=== PATIENT | female | born 1975 | race Caucasian/White ===

== ENCOUNTER 2017-09-18 18:12 | Outpatient (CLI) | payer OTHER ==
[~2017-09-18] VITALS: Ht 152.4 cm; Wt 98.9 kg
[~2017-09-18 18:12] MED LIST: CLOBETASOL 0.0515 GM TP; FIORICET PO; HYZAAR 50-12.1 UDTAB; HYZAAR 50-12.51 EACH PO; HYZAAR 50/12.51 TAB; HYZAAR 50/12.51 TAB PO; LIPO-FLAVONOID1 EACH PO; LISINOPRIL10 MG PO; MECLIZINE HCL12.5 MG; MECLIZINE HCL12.5 MG PO; NAPROXEN500 MG PO; TRENTAL 400 MG PO
== END 2017-09-18 18:30 | disposition home or self-care (01) ==
LOC: PPHC 18:12
DX: Z76.0 Encounter for issue of repeat prescription (principal); I10 Essential (primary) hypertension

== ENCOUNTER 2017-11-04 12:40 | Outpatient (CLI) | payer OTHER | END 2017-11-04 12:45 | disposition home or self-care (01) | LOC: RAD 12:40 | DX: M25.522 Pain in left elbow (principal) ==

== ENCOUNTER → 2017-11-04 | Outpatient (CLI) | payer OTHER | END | disposition home or self-care (01) | LOC: PPHC 11:04 | DX: M25.522 Pain in left elbow (principal) ==

== ENCOUNTER → 2017-11-23 | Outpatient (CLI) | payer OTHER | END | disposition home or self-care (01) | LOC: PPHC 08:55 | DX: Z76.0 Encounter for issue of repeat prescription (principal) ==

== ENCOUNTER 2018-01-25 07:36 | Outpatient (CLI) | payer OTHER | END 2018-01-25 09:48 | disposition home or self-care (01) | LOC: MAMO-SONO 07:36 | DX: Z12.31 Encounter for screening mammogram for malignant neoplasm of breast (principal) ==

== ENCOUNTER → 2018-01-30 09:18 | Outpatient (CLI) | payer OTHER | END | disposition home or self-care (01) | LOC: RAD 09:18 | DX: M54.2 Cervicalgia (principal) ==

== ENCOUNTER → 2018-03-08 06:51 | Outpatient (CLI) | payer OTHER | END | disposition home or self-care (01) | LOC: LAB 06:51 | DX: Z12.11 Encounter for screening for malignant neoplasm of colon (principal); I10 Essential (primary) hypertension ==

== ENCOUNTER 2019-01-26 09:45 | Outpatient (CLI) | payer OTHER ==
[~2019-01-26 09:45] MED LIST changes: +NABUMETONE750 MG PO
== END 2019-01-26 14:31 | disposition home or self-care (01) ==
LOC: MAMO-SONO 09:45
DX: N64.4 Mastodynia (principal); Z12.31 Encounter for screening mammogram for malignant neoplasm of breast

== ENCOUNTER 2019-03-14 08:18 | Outpatient (CLI) | payer OTHER | END 2019-03-14 08:25 | disposition home or self-care (01) | LOC: NUCLEAR 08:18 | DX: I10 Essential (primary) hypertension (principal) ==

== ENCOUNTER 2019-03-26 08:48 | Outpatient (CLI) | payer OTHER | END 2019-03-26 10:12 | disposition home or self-care (01) | LOC: LAB 08:48 | DX: D64.89 Other specified anemias (principal); R10.84 Generalized abdominal pain; E03.8 Other specified hypothyroidism; E78.5 Hyperlipidemia, unspecified; E78.49 Other hyperlipidemia; E80.6 Other disorders of bilirubin metabolism ==

== ENCOUNTER → 2019-04-27 18:16 | Outpatient (CLI) | payer OTHER | END | disposition home or self-care (01) | LOC: LAB 18:16 | DX: J11.1 Influenza due to unidentified influenza virus with other respiratory manifestations (principal) ==

== ENCOUNTER → 2019-07-09 13:23 | Outpatient (CLI) | payer OTHER | END | disposition home or self-care (01) | LOC: RAD 13:23 | DX: M54.2 Cervicalgia (principal); M25.511 Pain in right shoulder ==

== ENCOUNTER 2019-10-26 18:33 | Outpatient (CLI) | payer OTHER | END 2019-10-26 20:50 | disposition home or self-care (01) | LOC: RAD 18:33 | DX: M25.521 Pain in right elbow (principal) ==

== ENCOUNTER 2020-03-02 08:35 | Outpatient (CLI) | payer OTHER | END 2020-03-02 15:58 | disposition home or self-care (01) | LOC: MAMO-SONO 08:35 | PROVIDERS: ATTEND General Practice | DX: Z12.31 Encounter for screening mammogram for malignant neoplasm of breast (principal) ==

== ENCOUNTER 2020-04-21 08:43 | Outpatient (CLI) | payer OTHER | END 2020-04-21 15:00 | disposition home or self-care (01) | LOC: LAB 08:43 | PROVIDERS: ATTEND General Practice | DX: I10 Essential (primary) hypertension (principal); E78.2 Mixed hyperlipidemia; Z12.11 Encounter for screening for malignant neoplasm of colon; Z00.8 Encounter for other general examination ==

== ENCOUNTER 2020-04-27 17:46 | Outpatient (CLI) | payer OTHER | END 2020-04-27 18:00 | disposition home or self-care (01) | LOC: PPH VACUNA 17:46 | DX: Z23 Encounter for immunization (principal) ==

== ENCOUNTER → 2020-07-21 10:37 | Outpatient (CLI) | payer OTHER | END | disposition home or self-care (01) | LOC: LAB 10:37 | PROVIDERS: ATTEND General Practice | DX: Z03.818 Encounter for observation for suspected exposure to other biological agents ruled out (principal); R06.02 Shortness of breath; R05 Cough ==

== ENCOUNTER 2020-07-26 06:09 | Outpatient (CLI) | payer OTHER | END 2020-07-26 06:21 | disposition home or self-care (01) | LOC: LAB 06:09 | DX: D50.8 Other iron deficiency anemias (principal); N39.0 Urinary tract infection, site not specified; E11.65 Type 2 diabetes mellitus with hyperglycemia; Z12.11 Encounter for screening for malignant neoplasm of colon ==

== ENCOUNTER 2020-07-27 12:38 | Outpatient (CLI) | payer OTHER | END 2020-07-27 12:42 | disposition home or self-care (01) | LOC: LAB 12:38 | DX: D50.8 Other iron deficiency anemias (principal); N39.0 Urinary tract infection, site not specified; E11.69 Type 2 diabetes mellitus with other specified complication; Z12.11 Encounter for screening for malignant neoplasm of colon ==

== ENCOUNTER → 2020-08-22 | Outpatient (CLI) | payer OTHER | END | disposition home or self-care (01) | LOC: SONOGRAMA 08-21 10:11 → MAMO-SONO 08-21 10:15 → SONOGRAMA 10:16 | PROVIDERS: ATTEND General Practice | DX: M25.512 Pain in left shoulder (principal) ==

== ENCOUNTER → 2020-12-03 13:44 | Outpatient (CLI) | payer OTHER | END | disposition home or self-care (01) | LOC: LAB 13:44 | PROVIDERS: ATTEND Physical Medicine & Rehabilitation | DX: R05 Cough (principal); R50.9 Fever, unspecified; R06.02 Shortness of breath; Z03.818 Encounter for observation for suspected exposure to other biological agents ruled out ==

== ENCOUNTER 2020-12-11 10:01 | Outpatient (CLI) | payer OTHER | END 2020-12-11 10:06 | disposition home or self-care (01) | LOC: LAB 10:01 | PROVIDERS: ATTEND Internal Medicine | DX: Z20.89 Contact with and (suspected) exposure to other communicable diseases (principal); Z20.822 Contact with and (suspected) exposure to COVID-19; Z20.828 Contact with and (suspected) exposure to other viral communicable diseases ==

== ENCOUNTER 2021-02-21 14:45 | Outpatient (CLI) | payer OTHER | END 2021-02-21 16:04 | disposition home or self-care (01) | LOC: MAMO-SONO 14:45 | PROVIDERS: ATTEND General Practice | DX: D48.61 Neoplasm of uncertain behavior of right breast (principal); D48.62 Neoplasm of uncertain behavior of left breast ==

== ENCOUNTER 2021-05-08 08:00 | Outpatient (CLI) | payer OTHER | END 2021-05-08 08:30 | disposition home or self-care (01) | LOC: PPH VACUNA 08:00 | PROVIDERS: ATTEND Emergency Medicine Pediatric Emergency Medicine | DX: Z23 Encounter for immunization (principal) ==

== ENCOUNTER 2021-05-25 08:20 | Outpatient (CLI) | payer OTHER | END 2021-05-25 08:21 | disposition home or self-care (01) | LOC: LAB 08:20 | PROVIDERS: ATTEND General Practice | DX: D50.8 Other iron deficiency anemias (principal); N39.0 Urinary tract infection, site not specified; I10 Essential (primary) hypertension; E11.9 Type 2 diabetes mellitus without complications; E03.8 Other specified hypothyroidism; E78.2 Mixed hyperlipidemia ==

== ENCOUNTER 2021-07-08 10:48 | Emergency (ER) | payer OTHER ==
[~2021-07-08] VITALS: Ht 165.1 cm; Wt 90.7 kg
[2021-07-08] MEDS ORDERED: ATACAND16 MG (11:07)
[2021-07-08] MEDS ORDERED: MUPIROCIN1 G1 TOP (12:06)
== END 2021-07-08 12:12 | disposition home or self-care (01) ==
LOC: ER 10:48
DX: S90.811A Abrasion, right foot, initial encounter (principal); W25.XXXA Contact with sharp glass, initial encounter; Y92.89 Other specified places as the place of occurrence of the external cause; I10 Essential (primary) hypertension

== ENCOUNTER 2021-07-24 10:49 | Outpatient (CLI) | payer OTHER ==
[~2021-07-24 10:49] MED LIST changes: +ATACAND16 MG; +MUPIROCIN1 G1 TOP
== END 2021-07-24 10:51 | disposition home or self-care (01) ==
LOC: LAB 10:49
DX: D50.8 Other iron deficiency anemias (principal); E78.00 Pure hypercholesterolemia, unspecified